=== PATIENT | male | born 1990 | race Caucasian/White ===

== ENCOUNTER → 2021-05-24 11:32 | Outpatient (BNVA) | payer SELFPAY | PROVIDERS: PCP Nurse Practitioner Family; Visit Provider Podiatrist Foot & Ankle Surgery | DX: M79.672 Pain in left foot (principal); S82.62XA Displaced fracture of lateral malleolus of left fibula, initial encounter for closed fracture; X58.XXXA Exposure to other specified factors, initial encounter | CPT/HCPCS: 73610; 73630 ==

== ENCOUNTER 2021-05-24 16:11 | Outpatient (CLI) | payer SELFPAY | END 2021-05-24 16:12 | disposition home or self-care (01) | LOC: SPT 16:12 | PROVIDERS: PCP Nurse Practitioner Family; Visit Provider Podiatrist Foot & Ankle Surgery | DX: Z46.89 Encounter for fitting and adjustment of other specified devices (principal); M76.70 Peroneal tendinitis, unspecified leg | CPT/HCPCS: L1902 ==

== ENCOUNTER 2022-02-15 10:19 | Emergency (ER) | payer MEDICAID, SELFPAY ==
[2022-02-15 10:20] VITALS: BP 164/128; PULSE 91; RESP 16; TEMP 36.6; O2SAT 97; BMI 34.9
--- NOTE | 2022-02-15 10:27 | ECG_ITS ---
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 Measurements Intervals [place] Rate: 93 P: 41 [place]: 149 QRS: 37 QRSD: 84 T: 32 QT: 328 QTc: 409 Interpretive Statements SINUS RHYTHM WITH OCCASIONAL VENTRICULAR PREMATURE COMPLEXES No previous ECG available for comparison Electronically Signed On 02-16-2022 14:08:41 PRIMER ASSEMBLER by Jazmin Escalante M.D. [email or web address] [id number] f
[2022-02-15 10:49] VITALS: BP 208/134; PULSE 92; RESP 16; O2SAT 94
--- NOTE | 2022-02-15 10:49 | XRR_ITS ---
PROCEDURE INFORMATION: Exam: XR Chest Exam date and time: 02/15/2022 11:57 AM Age: 31 years old Clinical indication: Cough and dyspnea; Additional info: Dyspnea/cough TECHNIQUE: Imaging protocol: Radiologic exam of the chest. Views: 1 view. COMPARISON: No relevant prior studies available. FINDINGS: Lungs: Unremarkable. No consolidation. Pleural spaces: Unremarkable. No pleural effusion. No pneumothorax. Heart/Mediastinum: Unremarkable. No cardiomegaly. Bones/joints: Unremarkable. XR/XR chest 1V portable [id number] IMPRESSION: No acute chest abnormality
[2022-02-15 10:57] LABS: Basophils # 0.1 10^3/uL (0.0-0.1); Basophils % 1.1 %; Eosinophils # 0.2 10^3/uL (0.0-0.8); Eosinophils % 3.2 %; Hematocrit 50.2 % (42.0-52.0); Hemoglobin 17.6 g/dL (11.7-16.6); Lymphocytes # 1.4 10^3/uL (0.8-4.8); Lymphocytes % 22.4 %; Mean Corpuscular HGB Conc 35.1 g/dL (30.0-36.0); Mean Corpuscular Hemoglobin 30.2 pg (28.0-34.0); Mean Corpuscular Volume 86.1 fl (80-94); Monocytes # 0.5 10^3/uL (0.2-0.9); Neutrophils # 4.07 10^3/uL (1.8-7.7); Neutrophils % 65.1 %; Nucleated Red Blood Cells % 0 %; Platelet Count 310 10^3/cmm (130-400); Red Blood Count 5.83 10^6/uL (4.1-5.3); Red Cell Distribution Width 12.5 % (12.1-15.1); White Blood Count 6.3 10^3/uL (4.0-10.0)
[2022-02-15 11:15] LABS: Troponin(5th) Baseline 6 ng/L (0-15)
[2022-02-15 11:17] LABS: Alanine Aminotransferase 33 U/L (0-41); Albumin Level 4.3 g/dL (3.5-5.2); Alkaline Phosphatase 78 U/L (40-130); Aspartate Amino Transferase 23 U/L (0-40); Blood Urea Nitrogen 9 mg/dL (6-20); Calcium 9.2 mg/dL (8.5-10.5); Carbon Dioxide 22 mmol/L (22-29); Chloride 104 mmol/L (98-107); Globulin 3.3 g/dL (1.3-4.6); Glomerular Filtration Rate 97.8 mL/min (90-130); Glucose 107 mg/dL (65-115); Osmolality Calculated 283 mOsm/kg (285-295); Sodium 137 mmol/L (136-145); Total Bilirubin 0.5 mg/dL (0.15-1.2); Total Protein 7.6 g/dL (6.6-8.7)
--- NOTE | 2022-02-15 11:41 | ED_ITS ---
HPI - Chest Pain General: Chief Complaint: Chest Pain Stated Complaint: chest/arm pain Time Seen by Provider: 02/15/22 10:40 Source: patient Mode of arrival: ambulatory History of Present Illness: 32-year-old male presents emergency room with elevated blood pressure and generally not feeling well. He has been on medications in the past about 6 to 7 months ago he stopped medications. He was not necessarily having any side effects he just quit taking them. He has some vague chest discomfort he had some right arm pain along with that yesterday he is not particularly short of breath at this time. No associated diaphoresis n ausea or vomiting he has not noticed anything that makes it better or worse. MD complaint: chest pain Onset (ago): day(s) Timing of current episode: episodic Prior episodes: No Onset: during rest Pain location: substernal Pain radiation: right arm Severity: mild Quality: tightness and aching Relieving factors: nothing Exacerbating factors: nothing Associated symptoms: Deny abdominal pain, diaphoresis, dyspnea, fever(s), leg edema, nausea, palpitations, sense of impending doom, syncope or vomiting Treatment prior to arrival: none Review of Systems Const: Denies: fever(s), chills, fatigue, malaise or diaphoresis ENMT: Denies: throat pain, ear or mastoid pain, nasal discharge or nasal congestion Card: Denies: chest pain, palpitations or syncope Resp: Denies: dyspnea, productive cough or non-productive cough GI: Denies: abdominal pain, nausea or vomiting : Denies: flank pain, dysuria, urinary frequency or urinary urgency Musc: Denies: neck pain or back pain Skin/Breast: Denies: rash or pruritus Neuro: Reports: headache(s) PFSH ED PFSH: Medical History Depression Essential hypertension Social History Smoking and tobacco status: never smoked Second hand smoke exposure: No Alcohol intake: never Lives independently: Yes Household members: significant other Marital status: service: No Current occupational status: employed History of recent travel: No Current gender identity: Male Special rishi needs: No Agree to transfusion: Yes Physical Exam Const: GENERAL APPEARANCE: cooperative and comfortable ORIENTATION/CONSCIOUSNESS: Yes awake, Yes oriented to person, Yes oriented to place and Yes oriented to time HENMT: COMMON NORMALS: normocephalic, atraumatic and hearing grossly normal bilaterally HEAD & SCALP: normocephalic and atraumatic Resp: COMMON NORMALS: normal respiratory effort, No retractions, No use of accessory muscles and clear to auscultation bilaterally AUSCULTATION: clear to auscultation bilaterally Cardio: COMMON NORMALS: regular rate, regular rhythm and No murmurs present (Cardio) RATE: regular rate RHYTHM: regular rhythm GI: COMMON NORMALS: Soft to palpation and No hepatosplenomegaly present AUSCULTATION: Yes normoactive bowel sounds PALPATION: Yes Soft to palpation, No Tenderness to palpation present (GI), No Guarding due to palpation present (GI) and Yes No hepatosplenomegaly present Extremity: COMMON NORMALS: normal to inspection, capillary refill normal, no clubbing, cyanosis or edema, no calf tenderness and no pedal edema Neuro: SENSORIUM/ORIENTATION: Yes oriented to person, Yes oriented to place and Yes oriented to time Skin: COMMON NORMALS: no rashes or lesions noted GENERAL SKIN EXAM: no rashes or lesions noted Course Vital Signs: Vital signs: Vital Signs Temperature 97.9 F 02/15/22 14:41 Pulse Rate 92 02/15/22 14:41 Respiratory Rate 14 02/15/22 14:41 Blood Pressure 170/113 02/15/22 14:41 Pulse Oximetry 94 02/15/22 14:41 Oxygen Delivery Me thod 02/15/22 10:49 MDM - Chest Pain Medical Decision Making Labs imaging and EKG reviewed. No acute changes noted on EKG. Will start on amlodipine lisinopril and follow-up with primary care doctor reevaluate blood pressure within the next week recheck fizzing worsening problems. Medical Records I reviewed the patient's medical records. Lab Data I reviewed the patient's lab results. 02/15/22 10:51 02/15/22 10:51 Radiology Impressions Chest X-Ray 02/15/22 10:49 IMPRESSION: No acute chest abnormality Laboratory Results WBC 6.3 10^3/uL (4.0-10.0) 02/15/22 10:51 RBC 5.83 10^6/uL (4.1-5.3) H 02/15/22 10:51 Hgb 17.6 g/dL (11.7-16.6) H 02/15/22 10:51 Hct 50.2 % (42.0-52.0) 02/15/22 10:51 MCV 86.1 fl (80-94) 02/15/22 10:51 MCH 30.2 pg (28.0-34.0) 02/15/22 10:51 MCHC 35.1 g/dL (30.0-36.0) 02/15/22 10:51 RDW 12.5 % (12.1-15.1) 02/15/22 10:51 Plt Count 310 10^3/cmm (130-400) 02/15/22 10:51 MPV 9.0 fL (7.4-10.4) 02/15/22 10:51 Neut % (Auto) 65.1 % 02/15/22 10:51 Lymph % (Auto) 22.4 % 02/15/22 10:51 [place] % (Auto) 8.0 % 02/15/22 10:51 Eos % (Auto) 3.2 % 02/15/22 10:51 Baso % (Auto) 1.1 % 02/15/22 10:51 Neut # (Auto) 4.07 10^3/uL (1.8-7.7) 02/15/22 10:51 Lymph # (Auto) 1.4 10^3/uL (0.8-4.8) 02/15/22 10:51 [place] # (Auto) 0.5 10^3/uL (0.2-0.9) 02/15/22 10:51 Eos # (Auto) 0.2 10^3/uL (0.0-0.8) 02/15/22 10:51 Baso # (Auto) 0.1 10^3/uL (0.0-0.1) 02/15/22 10:51 Nucleated RBC % (auto) 0 % 02/15/22 10:51 Nucleated RBCs # 0.0 /100WBC 02/15/22 10:51 Sodium 137 mmol/L (136-145) 02/15/22 10:51 Potassium 4.0 mmol/L (3.5-5.1) 02/15/22 10:51 Chloride 104 mmol/L (98-107) 02/15/22 10:51 Carbon Dioxide 22 mmol/L (22-29) 02/15/22 10:51 Anion Gap 15.0 (5-19) 02/15/22 10:51 BUN 9 mg/dL (6-20) 02/15/22 10:51 Creatinine 0.9 mg/dL (0.7-1.2) 02/15/22 10:51 GFR Calculation 97.8 mL/min (90-130) 02/15/22 10:51 Glucose 107 mg/dL (65-115) 02/15/22 10:51 Calculated Osmolality 283 mOsm/kg (285-295) L 02/15/22 10:51 Calcium 9.2 mg/dL (8.5-10.5) 02/15/22 10:51 Total Bilirubin 0.5 mg/dL (0.15-1.2) 02/15/22 10:51 AST 23 U/L (0-40) 02/15/22 10:51 ALT 33 U/L (0-41) 02/15/22 10:51 Alkaline Phosphatase 78 U/L (40-130) 02/15/22 10:51 Troponin T Baseline 6 ng/L (0-15) 02/15/22 10:51 Troponin T 120 Minute 6.00 ng/L (0-15) 02/15/22 12:51 Delta Troponin T 0 ABS# (0-10) 02/15/22 12:51 Total Protein 7.6 g/dL (6.6-8.7) 02/15/22 10:51 Albumin 4.3 g/dL (3.5-5.2) 02/15/22 10:51 Globulin 3.3 g/dL (1.3-4.6) 02/15/22 10:51 Discharge Plan Discharge Patient Disposition: Home Clinical Impression: Essential hypertension Condition: Stable Prescriptions: No Action lisinopril 20 mg tablet 20 mg PO DAILY Qty: 30 1RF amlodipine 5 mg tablet 5 mg PO DAILY Qty: 30 0RF Discharge Orders: Discharge ED (Routine); Ordered 02/15/22 Ordered By: Luis Miguel Eid Referrals: Elisa Pope APN [Primary Care Provider] - Discharge Diet: Usual diet Discharge Activity: Resume usual activity Patient Instructions: Opioid Safety, Pain Management Activity Restrictions/Additional Instructions: Your EKG and cardiac enzymes were normal today. Your blood pressure was markedly elevated and improved with medications you were given. We will start you on amlodipine 5 mg once daily and lisinopril 10 mg once daily. You should follow-up with your primary care doctor within the next week. Coding Level of Care Code ED Men[employer] for Paty Frederick
[2022-02-15] MEDS: metoprolol tartrate 25 mg Tablet PO (12:10)
[2022-02-15] MEDS: aspirin 81 mg Chew Tablet 324 MG PO (12:10)
[2022-02-15] MEDS: labetalol 5 mg/mL SDV 20mL 10 MG IVP (12:11)
[2022-02-15 12:12] VITALS: BP 157/104; RESP 14
[2022-02-15 12:42] VITALS: BP 170/113
--- NOTE | 2022-02-15 12:49 | ECG_ITS ---
[facility] Test Date: 2022-02-15 Pat Name: Miguel Angel Rivera Department: Room: Gender: Male Water Inspector: : 1990 Requested By: Luis Miguel Hall Order Number: [id number] Brenda MD: Jazmin Escalante M.D. Measurements Intervals [place] Rate: 72 P: 21 [place]: 150 QRS: 52 QRSD: 86 T: 46 QT: 374 QTc: 410 Interpretive Statements SINUS RHYTHM WITH OCCASIONAL VENTRICULAR PREMATURE COMPLEXES Compared to ECG 02/15/2022 10:33:05 No significant changes Electronically Signed On 02-16-2022 15:23:37 TRACK REPAIR SUPERVISOR by Jazmin Escalante M.D. [id number]
[2022-02-15 14:02] LABS: Troponin 5 2HR Delta 0 ABS# (0-10)
[2022-02-15 14:41] VITALS: BP 170/113; PULSE 92; RESP 14; TEMP 36.6; O2SAT 94
== END 2022-02-15 14:42 | disposition home or self-care (01) ==
PROVIDERS: Emergency Provider Family Medicine; PCP Nurse Practitioner Family
DX: I10 Essential (primary) hypertension (principal)
CPT/HCPCS: 36415; 71045; 80053; 84484; 85025; 93005; 96374; 99285; J3490

== ENCOUNTER → 2023-06-20 11:39 | Outpatient (BNVA) | payer MEDICAID, SELFPAY | PROVIDERS: PCP Family Medicine; Visit Provider Nurse Practitioner Family | DX: I10 Essential (primary) hypertension (principal); F32.A Depression, unspecified; E66.01 Morbid (severe) obesity due to excess calories; Z68.36 Body mass index [BMI] 36.0-36.9, adult | CPT/HCPCS: 80053; 80061; 83036; 84443; 85025 ==